=== PATIENT | male | born 1995 | race Two or more races ===

== ENCOUNTER 2016-11-18 09:36 | Emergency (ER) | payer MEDICAID, OTHER ==
[~2016-11-18] VITALS: Ht 175.3 cm; Wt 68.0 kg
[2016-11-18 13:14] LABS: Urine Bilirubin Negative (Negative); Urine Blood Negative /uL (Negative); Urine Color Yellow (Yellow); Urine Glucose Normal (Normal); Urine Ketone Negative (Negative); Urine Nitrite Negative (Negative); Urine RBC 1 /hpf (0 - 3); Urine Squamous Epithelial Cell FEW /hpf (<5); Urine Urobilinogen Normal (Negative)
[2016-11-18 13:23] VITALS: BP 139/86
== END 2016-11-18 13:26 | disposition home or self-care (01) ==
LOC: ER 09:41
DX: S39.012A Strain of muscle, fascia and tendon of lower back, initial encounter (principal); X58.XXXA Exposure to other specified factors, initial encounter; Y93.89 Activity, other specified; Y99.8 Other external cause status; Y92.89 Other specified places as the place of occurrence of the external cause
CPT/HCPCS: 74176; 81001; 81002

== ENCOUNTER 2016-11-21 17:41 | Emergency (ER) | payer MEDICAID ==
[~2016-11-21] VITALS: Ht 172.7 cm; Wt 70.8 kg
[2016-11-21 19:16] LABS: Basophils # (auto) 0 uL; Basophils % (auto) 0.6 % (0.0-2.0); Eosinophils # (auto) 0.3 uL; Eosinophils % (auto) 3.5 % (0.0-7.0); Hematocrit 46.6 % (41.0-53.0); Hemoglobin 15.8 g/dL (13.5-17.5); Lymphocytes # (auto) 2.1 uL; Lymphocytes % (auto) 26.2 % (10.0-50.0); Mean Corpuscular Hemoglobin 29.3 pg (28.0-32.0); Mean Corpuscular Hgb Conc. 33.8 g/dL (32.0-36.0); Mean Corpuscular Volume 86.7 fL (80.0-100.0); Monocytes # (auto) 0.6 uL; Monocytes % (auto) 7.2 % (0.0-12.0); Neutrophils # (auto) 4.9 uL; Neutrophils % (auto) 62.5 % (37.0-80.0); Platelet Count (auto) 300 10^3/uL (140-450); Red Cell Distribution Width 12.8 % (11.6-16.0); White Blood Cell 7.9 10^3/uL (4.4-10.8)
[2016-11-21 19:26] LABS: Albumin 4.2 g/dL (3.4-5.0); BUN/Creatinine Ratio 17.2; Calcium 8.7 mg/dL (8.5-10.1); Potassium 4.1 mmol/L (3.5-5.1)
[2016-11-21 19:29] LABS: Bilirubin, Total 0.9 mg/dL (0.2-1.0); Total Protein 7.9 g/dL (6.4-8.2)
[2016-11-21 22:15] LABS: Urine Bilirubin Negative (Negative); Urine Blood Negative /uL (Negative); Urine Color Yellow (Yellow); Urine Glucose Normal (Normal); Urine Ketone Negative (Negative); Urine Nitrite Negative (Negative); Urine RBC 2 /hpf (0 - 3); Urine Urobilinogen Normal (Negative)
[2016-11-21] MEDS ORDERED: LIDOCAINE VISCOUS 2% 15ML UD PO ONE (22:30)
[2016-11-21] MEDS ORDERED: DONNATAL 5ml ORAL Elix (BELLADONNA ALK-PHENOBARB) PO ONE (22:30)
[2016-11-21] MEDS ORDERED: ALUM & MAG HYDROX-SIMETH LIQ(MAALOX) 30 ML PO ONE (22:30)
[2016-11-22 00:30] VITALS: BP 107/61
== END 2016-11-22 00:54 | disposition home or self-care (01) ==
LOC: ER 17:44
DX: K29.70 Gastritis, unspecified, without bleeding (principal)
CPT/HCPCS: 36415; 76705; 80053; 81001; 83690; 85025

== ENCOUNTER 2017-02-09 00:45 | Emergency (ER) | payer SELFPAY ==
[~2017-02-09] VITALS: Ht 172.7 cm; Wt 68.0 kg
[2017-02-09 01:08] VITALS: BP 135/94
== END 2017-02-09 03:53 | disposition home or self-care (01) ==
LOC: ER 00:47
DX: S61.217A Laceration without foreign body of left little finger without damage to nail, initial encounter (principal); W26.9XXA Contact with unspecified sharp object(s), initial encounter; Y93.89 Activity, other specified; Y99.8 Other external cause status; Y92.59 Other trade areas as the place of occurrence of the external cause
CPT/HCPCS: 12001

== ENCOUNTER 2018-07-14 05:27 | Emergency (ER) | payer MEDICAID, OTHER ==
[~2018-07-14] VITALS: Ht 172.7 cm; Wt 70.3 kg
[2018-07-14 05:32] VITALS: BP 114/77
== END 2018-07-14 07:55 | disposition home or self-care (01) ==
LOC: ER 05:29
DX: J03.90 Acute tonsillitis, unspecified (principal)